=== PATIENT | female | born 1955 | race Caucasian/White ===

== ENCOUNTER → 2020-02-15 | Outpatient (CLI) | payer MEDICARE, OTHER ==
[~2020-02-15] MED LIST: DIATRIZOATE MEGL/DIATRIZOA SOD 30 ML BTL PO ONE; IOPAMIDOL 370 MG/ML 200 ML INFUS..BTL INJ ONE; SODIUM CHLORIDE 0.9% 50ML 50 ML ONE
[2020-02-15 16:41] LABS: BLOOD UREA NITROGEN 22 mg/dL (7-26); BUN/CREATININE RATIO 32 (6-25); CREATININE, SERUM 0.69 mg/dL (0.57-1.11); EST GLOMERULAR FILTRATION RATE > 60 ML/MIN (60-)
--- NOTE | 2020-02-15 23:34 | Diagnostic Imaging Report ---
EXAMINATION: CT of the abdomen and pelvis with contrast. TECHNIQUE: Spiral CT images of the abdomen and pelvis were performed from the lung bases to the lesser trochanters after the intravenous administration of 100 cc of Isovue 370 and the oral administration of dilute Gastrografin. Coronal and sagittal reformatted images were obtained. COMPARISON: ] Upper quadrant ultrasound 12/20/2006 CLINICAL HISTORY:Bilateral lower quadrant abdominal pain for a few days. Bloating. DISCUSSION: ABDOMEN/PELVIS: LOWER THORAX:Lung bases are clear. Small hiatal hernia.. HEPATOBILIARY: Diffusely decreased attenuation of the hepatic parenchyma compared to the spleen, consistent with fatty infiltration. No focal lesions. No intra or extrahepatic biliary ductal dilation. GALLBLADDER: No radio-opaque stones or sludge. No wall thickening. SPLEEN: No splenomegaly. PANCREAS: No focal masses or ductal dilatation. ADRENALS: No adrenal nodules. KIDNEYS/URETERS: No renal or ureteral calculi. No hydronephrosis or obstruction. No solid enhancing masses. 1.2 cm mostly exophytic fluid density simple cyst in the right lateral interpolar region (series 2, image 37). PELVIC ORGANS/BLADDER: Bladder is unremarkable. Uterus is absent. No adnexal masses. PERITONEUM/RETROPERITONEUM: No free air or fluid. LYMPH NODES: No intra-abdominal, retroperitoneal, pelvic or inguinal lymphadenopathy. VESSELS: The celiac trunk,superior and inferior mesenteric and bilateral renal arteries are patent The portal, superior mesenteric and splenic veins are patent. Atherosclerotic calcification of the abdominal aorta and proximal iliac vessels. GI TRACT: No bowel dilation or evidence of obstruction. Marked diverticulosis of the sigmoid colon without surrounding inflammatory changes to suggest diverticulitis. Mild wall thickening in the proximal and mid sigmoid colon, which is felt to represent muscular hypertrophy given the absence of inflammatory changes. No focal mass is identified. Rest of the large bowel as well as the small bowel shows no wall thickening. Appendix is well identified and normal in caliber. BONES AND SOFT TISSUE: No aggressive lytic or suspicious focal sclerotic lesion. No soft tissue abnormalities. IMPRESSION: 1. Extensive sigmoid diverticulosis, without CT evidence of diverticulitis. Mild wall thickening in the proximal and mid sigmoid colon is felt to represent muscular hypertrophy given the absence of inflammatory changes. Direct visualization with endoscopy is recommended, if clinically indicated. 2. Diffuse hepatic steatosis. No focal lesions. Signed by: Dr. Tito Almanza M.D. on 02/15/2020 11:31 PM
== END ==
LOC: CT 15:51
PROVIDERS: ATTEND Internal Medicine Gastroenterology
DX: R10.32 Left lower quadrant pain (principal); R10.31 Right lower quadrant pain; R14.0 Abdominal distension (gaseous)
CPT/HCPCS: 36415; 74177; 82565; 84520; Q9967

== ENCOUNTER → 2021-05-21 | Day surgery (SDC) | payer MEDICARE, OTHER ==
[2021-05-19 15:08] LABS: BASOPHILS # (AUTO) 0.1 (0.0-0.1); BASOPHILS % 0.8 % (0.0-1.0); EOSINOPHILS # (AUTO) 0.2 (0.0-0.4); EOSINOPHILS % 2.6 % (0.0-6.0); HEMATOCRIT 41.1 % (34.2-44.1); HEMOGLOBIN 13.3 g/dL (12.0-16.0); LYMPHOCYTES # (AUTO) 3.3 (1.0-3.2); LYMPHOCYTES % 41.7 % (18.0-39.1); MEAN CORPUSCULAR HEMOGLOBIN 29.2 pg (28-32); MEAN CORPUSCULAR HGB CONC 32.4 g/dL (31-35); MEAN CORPUSCULAR VOLUME 90.1 fL (81-99); MONOCYTES # (AUTO) 0.6 (0.2-0.8); MONOCYTES % 7.4 % (4.4-11.3); NEUTROPHILS # (AUTO) 3.7 (2.1-6.9); NEUTROPHILS % 47.1 % (38.7-80.0); PLATELET COUNT 297 x10e3/uL (140-360); RED BLOOD COUNT 4.56 x10e6/uL (3.6-5.1); RED CELL DISTRIBUTION WIDTH 13.2 % (11.7-14.4)
[~2021-05-21] MED LIST changes: +AMBIEN10 MG PO; +CELEBREX100 MG PO; -DIATRIZOATE MEGL/DIATRIZOA SOD 30 ML BTL PO ONE; +ESTRADIOL1 MG TOP; +HYDROCHLOROTHIA25 MG PO; -IOPAMIDOL 370 MG/ML 200 ML INFUS..BTL INJ ONE; +METOPROLOL SUCC50 MG PO; +ONDANSETRON HCL INJ 2MG/ML 2ML 2 MG/ML VIAL ONE; +PROZAC40 MG PO; -SODIUM CHLORIDE 0.9% 50ML 50 ML ONE
[2021-05-21 17:50] VITALS: BP 133/93
== END | disposition home or self-care (01) ==
LOC: OR 12:07
PROVIDERS: ATTEND Internal Medicine Gastroenterology
DX: K52.9 Noninfective gastroenteritis and colitis, unspecified (principal); K62.1 Rectal polyp; K29.70 Gastritis, unspecified, without bleeding; K29.80 Duodenitis without bleeding; K20.90 Esophagitis, unspecified without bleeding; K21.9 Gastro-esophageal reflux disease without esophagitis; K44.9 Diaphragmatic hernia without obstruction or gangrene; K57.30 Diverticulosis of large intestine without perforation or abscess without bleeding; K62.89 Other specified diseases of anus and rectum; I10 Essential (primary) hypertension; M35.00 Sjogren syndrome, unspecified; Z88.1 Allergy status to other antibiotic agents; Z88.3 Allergy status to other anti-infective agents; Z01.810 Encounter for preprocedural cardiovascular examination; Z01.812 Encounter for preprocedural laboratory examination; Z11.52 Encounter for screening for COVID-19; Z68.30 Body mass index [BMI] 30.0-30.9, adult; Z87.440 Personal history of urinary (tract) infections
CPT/HCPCS: 36415; 43239; 45380; 83993; 85025; 87045; 87177; 87328; 87493; 88305; 88312; 93005; J2405; U0002; 45378

== ENCOUNTER → 2021-05-27 | Outpatient (CLI) | payer MEDICARE, OTHER ==
[~2021-05-27] MED LIST changes: -ONDANSETRON HCL INJ 2MG/ML 2ML 2 MG/ML VIAL ONE
== END ==
LOC: US 07:42
PROVIDERS: ATTEND Internal Medicine Gastroenterology
DX: R19.7 Diarrhea, unspecified (principal); R10.10 Upper abdominal pain, unspecified
CPT/HCPCS: 76705